=== PATIENT | female | born 2000 | race Hispanic/Latino ===

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

== ENCOUNTER 2020-04-18 21:28 | Emergency (ER) | payer SELFPAY ==
[2020-04-18 22:50] LABS: Absolute Lymphocytes (CBC) 2.8 K/uL (0.7-4.9); Basophils % 0.8 % (0-1.3); Hematocrit 42.3 % (36.0-45.0); Lymphocytes % 39.1 % (15.3-44.8); MPV 10.2 fL (7.6-11.3); RBC Red Blood Cell Count 4.57 M/uL (3.86-4.86)
[2020-04-18 22:59] LABS: ALT/SGPT 30 U/L (12-78); AST/SGOT 19 U/L (15-37); Albumin 4.1 g/dL (3.4-5.0); Alkaline Phosphatase 76 U/L (45-117); BUN Blood Urea Nitrogen 10 mg/dL (7-18); Bicarbonate 27 mmol/L (21-32); Bilirubin Direct < 0.1 mg/dL (0-0.2); Bilirubin Total 0.2 mg/dL (0.2-1.0); Glucose Level 84 mg/dL (74-106); Lipase 67 U/L (73-393); Potassium 3.8 mmol/L (3.5-5.1); Protein, Total 7.8 g/dL (6.4-8.2); Sodium Level 140 mmol/L (136-145)
[2020-04-18] MEDS ORDERED: ONDANSETRON 4 MG/2 ML VIAL ONE (23:01)
[2020-04-18] MEDS ORDERED: NA CHLORIDE 0.9% 1,000 ML ONE (23:02)
[2020-04-18] MEDS ORDERED: KETOROLAC 30 MG/ML INJ ONE (23:02)
[2020-04-19 00:08] LABS: Urine Bacteria >50 /HPF (<20); Urine Mucus 1+ /HPF (NONE SEEN); Urine RBC <5 /HPF (NONE SEEN)
[2020-04-19 00:48] LABS: Urine Blood NEGATIVE (NEG); Urine Glucose NEGATIVE (NEG); Urine Protein NEGATIVE (NEG); Urine Specific Gravity 1.025 (1.005-1.030); Urine pH 6.5 (5.0-7.0)
--- NOTE | 2020-04-19 02:12 | ER ---
Nurse's Notes [facility] Name: Lulu Downey Age: 19 yrs Sex: Female : 2000 Arrival Date: 04/18/2020 Time: 21:30 Bed 18 Private MD: Diagnosis: Pain localized to other parts of lower abdomen;Encounter for screening for infections with a predominantly sexual mode of transmission Presentation: 04/18 21:37 Chief complaint: Patient states: Lower abd pain for 4 days. Sharp pain to RLQ. + ll1 nausea, diarrhea resolved after the first two days. Coronavirus screen: Client denies travel out of the [place] in the last 14 days. At this time, the client does not indicate any symptoms associated with coronavirus-19. Ebola Screen: Patient denies travel to an Ebola-affected area in the 21 days before illness onset. Initial Sepsis Screen: Does the patient meet any 2 criteria? No. Patient's initial sepsis screen is negative. Does the patient have a suspected source of infection? Yes: Acute abdominal pain. Risk Assessment: Do you want to hurt yourself or someone else? Patient reports no desire to harm self or others. Onset of symptoms was April 15, 2020. 21:37 Method Of Arrival: Ambulatory ll1 21:37 Acuity: JUDITH 3 ll1 Historical: - Allergies: 21:39 No Known Allergies; ll1 - PMHx: 21:39 Anxiety; ll1 - PSHx: 21:39 Knee surgery; ll1 - Immunization history:: Flu vaccine is not up to date. - Social history:: Smoking status: Reported history of juuling and/or vaping. Patient denies any tobacco usage or history of. Screenin:45 Abuse screen: Denies threats or abuse. Nutritional screening: No deficits noted. jb4 Tuberculosis screening: No symptoms or risk factors identified. Fall Risk None identified. Assessment: 21:45 General: Appears in no apparent distress. comfortable, Behavior is calm, cooperative, jb4 appropriate for age. Pain: Complains of pain in right lower quadrant Pain radiates to left lower quadrant Pain currently is 9 out of 10 on a pain scale. Quality of pain is described as crampy. Neuro: Level of Consciousness is awake, alert, obeys commands, Oriented to person, place, time, situation. Cardiovascular: Patient's skin is warm and dry. Respiratory: Airway is patent Respiratory effort is even, unlabored, Respiratory pattern is regular, symmetrical. GI: Abdomen is flat, non-distended, Abd is soft X 4 quads Abd is non tender in right upper quadrant and left upper quadrant Abdomen is tender to palpation in right lower quadrant and left lower quadrant. : No signs and/or symptoms were reported regarding the genitourinary system. EENT: No signs and/or symptoms were reported regarding the EENT system. Derm: Skin is intact, Skin is pink, warm \T\ dry. Musculoskeletal: Circulation, motion, and sensation intact. Range of motion: intact in all extremities. 23:00 Reassessment: Patient appears in no apparent distress at this time. Patient and/or jb4 family updated on plan of care and expected duration. Pain level reassessed. Patient is alert, oriented x 3, equal unlabored respirations, skin warm/dry/pink. Ct notified pt finished oral contrast at 2230. 04/19 00:42 Reassessment: Patient appears in no apparent distress at this time. Patient and/or jb4 family updated on plan of care and expected duration. Pain level reassessed. Patient is alert, oriented x 3, equal unlabored respirations, skin warm/dry/pink. 01:45 Reassessment: Patient appears in no apparent distress at this time. Patient and/or jb4 family updated on plan of care and expected duration. Pain level reassessed. Patient is alert, oriented x 3, equal unlabored respirations, skin warm/dry/pink. 02:40 Reassessment: Patient appears in no apparent distress at this time. Patient and/or jb4 family updated on plan of care and expected duration. Pain level reassessed. Patient is alert, oriented x 3, equal unlabored respirations, skin warm/dry/pink. Vital Signs: 04/18 21:37 BP 125 / 102; Pulse 82; Resp 17; Temp 98.4; Pulse Ox 99% ; Weight 74.84 kg; Height 5 ll1 ft. 2 in. (157.48 cm); Pain 9/10; 22:45 BP 129 / 79; Pulse 57; Resp 16; Pulse Ox 98% on R/A; jb4 23:30 BP 107 / 66; Pulse 70; Resp 16; Pulse Ox 98% on R/A; jb4 04/19 00:30 BP 96 / 53; Pulse 81; Resp 18; Pulse Ox 97% on R/A; jb4 01:45 BP 101 / 56; Pulse 68; Resp 16; Pulse Ox 97% on R/A; jb4 02:30 BP 100 / 62; Pulse 80; Resp 16; Pulse Ox 98% on R/A; jb4 04/18 21:37 Body Mass Index 30.18 (74.84 kg, 157.48 cm) ll1 ED Course: 04/18 21:30 Patient arrived in ED. cl3 21:38 Triage completed. ll1 21:39 Arm band placed on Patient placed in an exam room, on a stretcher. ll1 21:40 Rodrick Marley PA is PHCP. cp 21:40 Rodrick Gordillo MD is Attending Physician. cp 21:45 Patient has correct armband on for positive identification. Bed in low position. Call jb4 light in reach. Side rails up X 1. Pulse ox on. NIBP on. 21:51 Kiran Richter, NAVIN is Primary Nurse. jb4 22:30 Initial lab(s) drawn, by me. Inserted saline lock: 20 gauge in right antecubital area, jb4 using aseptic technique. Blood collected. 23:24 Pelvis Complete In Process Unspecified. EDMS 04/19 00:25 CT Abd/Pelvis - PO and IV Contrast In Process Unspecified. EDMS 02:07 Assist provider with pelvic exam: Set up pelvic tray. Performed by Rodrick CASTANEDA bb Specimens sent to lab. Patient tolerated well. 02:09 Sergio Wright MD is Referral Physician. cp 02:40 IV discontinued, intact, bleeding controlled, No redness/swelling at site. Pressure jb4 dressing applied. Administered Medications: 04/18 22:58 Drug: Zofran (Ondansetron) 4 mg Route: IVP; Site: right antecubital; jb4 23:30 Follow up: Response: No adverse reaction jb4 23:00 Drug: TORadol - Ketorolac 15 mg Route: IVP; Site: right antecubital; jb4 23:30 Follow up: Response: Adverse reaction, Physician notified; Pain is decreased jb4 23:00 Drug: NS 0.9% 1000 ml Route: IV; Rate: 1 bolus; Site: right antecubital; jb4 23:45 Follow up: Response: No adverse reaction; IV Status: Completed infusion jb4 04/19 02:25 Drug: Rocephin 1 grams Route: IV; Rate: calculated rate; Site: right antecubital; jb4 02:25 Drug: Zithromax 1 grams Route: PO; jb4 Outcome: 02:11 Discharge ordered by MD. wu 02:40 Patient left the ED. jb4 02:40 Discharged to home ambulatory. jb4 02:40 Condition: stable 02:40 Discharge instructions given to patient, Instructed on discharge instructions, follow up and referral plans. medication usage, Demonstrated understanding of instructions, follow-up care, medications, Prescriptions given X 1. Signatures: Dispatcher [employer] Samira Miguel RN RN Rodrick Collier PA PA cp Bryson, James, RN RN jb4 Tito Cordero3 Genaro Cordero RN RN ll1
--- NOTE | 2020-04-19 02:12 | EDPHYS ---
Physician Documentation [facility] Name: Lulu Downey Age: 19 yrs Sex: Female : 2000 Arrival Date: 04/18/2020 Time: 21:30 Bed 18 Private MD: ED Physician Rodrick Gordillo HPI: 04/18 22:00 This 19 yrs old Female presents to ER via Ambulatory with complaints of Low cp Abdominal Pain. 22:00 The patient presents with abdominal pain in the lower abdomen. Onset: The cp symptoms/episode began/occurred 4 day(s) ago. The symptoms do not radiate. Associated signs and symptoms: Pertinent positives: low back pain, Pertinent negatives: anorexia, constipation, diarrhea, dysuria, fever, vaginal discharge, vomiting. The symptoms are described as waxing/waning. 04/19 01:00 Patient reports recent history of having unprotected sex with new partner. cp Historical: - Allergies: 04/18 21:39 No Known Allergies; ll1 - PMHx: 21:39 Anxiety; ll1 - PSHx: 21:39 Knee surgery; ll1 - Immunization history:: Flu vaccine is not up to date. - Social history:: Smoking status: Reported history of juuling and/or vaping. Patient denies any tobacco usage or history of. ROS: 22:05 Abdomen/GI: Positive for abdominal pain, nausea, Negative for vomiting, diarrhea, cp constipation, anorexia. 22:05 Eyes: Negative for injury, pain, redness, and discharge. cp 22:05 Constitutional: Negative for body aches, chills, fever, poor PO intake. 22:05 ENT: Negative for ear pain, sore throat, difficulty swallowing, difficulty handling secretions. 22:05 Cardiovascular: Negative for chest pain, edema, palpitations. 22:05 Respiratory: Negative for cough, shortness of breath, wheezing. 22:05 Back: Positive for pain at rest, pain with movement, of the low back area. 22:05 : Negative for urinary symptoms, flank pain, vaginal bleeding, vaginal discharge. 22:05 Neuro: Negative for altered mental status, headache, syncope, weakness. 22:05 All other systems are negative. Exam: 22:10 Constitutional: The patient appears in no acute distress, alert, awake, non-toxic, well cp developed, well nourished. 22:10 Head/Face: Normocephalic, atraumatic. cp 22:10 Eyes: Periorbital structures: appear normal, Conjunctiva: normal, no exudate, no injection, Sclera: no appreciated abnormality, Lids and lashes: appear normal, bilaterally. 22:10 ENT: External ear(s): are unremarkable, Nose: is normal, Posterior pharynx: Airway: no evidence of obstruction, patent. 22:10 Chest/axilla: Inspection: normal. 22:10 Cardiovascular: Rate: normal, Rhythm: regular. 22:10 Respiratory: the patient does not display signs of respiratory distress, Respirations: normal, no use of accessory muscles, no retractions, labored breathing, is not present. 22:10 Abdomen/GI: Inspection: abdomen appears normal, Bowel sounds: active, all quadrants, Palpation: soft, in all quadrants, mild abdominal tenderness, in the left lower quadrant, moderate abdominal tenderness, in the right lower quadrant, rebound tenderness, is not appreciated, voluntary guarding, is not appreciated, involuntary guarding, is not appreciated. 22:10 Back: pain, that is moderate, of the low back area, ROM is normal, CVA tenderness, is absent. 04/19 01:15 : Pelvic Exam: External exam: is normal, Speculum exam: no bleeding is noted, no cp cervicitis, os that is closed, bimanual exam reveals mild CMT and bilateral adnexal tenderness with no masses palpated, discharge, yellow, a female property management specialist was present for the exam, Sexual behavior: the patient is sexually active, method of control is none. Vital Signs: 04/18 21:37 BP 125 / 102; Pulse 82; Resp 17; Temp 98.4; Pulse Ox 99% ; Weight 74.84 kg; Height 5 ll1 ft. 2 in. (157.48 cm); Pain 9/10; 22:45 BP 129 / 79; Pulse 57; Resp 16; Pulse Ox 98% on R/A; jb4 23:30 BP 107 / 66; Pulse 70; Resp 16; Pulse Ox 98% on R/A; jb4 03 00:30 BP 96 / 53; Pulse 81; Resp 18; Pulse Ox 97% on R/A; jb4 01:45 BP 101 / 56; Pulse 68; Resp 16; Pulse Ox 97% on R/A; jb4 02:30 BP 100 / 62; Pulse 80; Resp 16; Pulse Ox 98% on R/A; jb4 04/18 21:37 Body Mass Index 30.18 (74.84 kg, 157.48 cm) ll1 MDM: 04/18 21:42 Patient medically screened. cp 22:00 Differential diagnosis: appendicitis, Ectopic , Endometriosis, Ovarian cp Torsion, Pelvic Inflammatory Disease, Pyelonephritis, Tubal Ovarian Abcess, Ureterolithiasis, urinary tract infection. 04/19 02:10 Data reviewed: vital signs, nurses notes, lab test result(s), radiologic studies, CT cp scan, ultrasound. 02:10 Counseling: I had a detailed discussion with the patient and/or guardian regarding: the cp historical points, exam findings, and any diagnostic results supporting the discharge/admit diagnosis, lab results, radiology results, the need for outpatient follow up, an OB/Gyne specialist, to return to the emergency department if symptoms worsen or persist or if there are any questions or concerns that arise at home. Response to treatment: the patient's symptoms have markedly improved after treatment, VSS. Pain improved with meds. Patient appears non-toxic. Will treat for PID and discharge to home for continued monitoring. 04/18 21:52 Order name: Basic Metabolic Panel cp 04/18 21:52 Order name: CBC with Diff; Complete Time: 23:06 cp 04/18 21:52 Order name: Hepatic Function; Complete Time: 23:06 cp 04/18 21:52 Order name: Lipase; Complete Time: 23:06 cp 04/18 21:52 Order name: Urine Microscopic Only; Complete Time: 01:23 cp 04/19 01:23 Interpretation: Normal except: UWBC 5-10; UBACT >50; SQEPI 5-10. cp 04/18 21:52 Order name: Basic Metabolic Panel; Complete Time: 23:06 EDMS 04/18 22:42 Order name: Urine --Ancillary (enter results); Complete Time: 01:23 tt3 04/18 22:42 Order name: Urine Dipstick--Ancillary (enter results); Complete Time: 01:23 tt3 04/19 00:12 Order name: Urine Culture EDMS 04/19 01:28 Order name: GC (GONORR/CHLAMYDIA) Probe cp 04/19 01:28 Order name: Wet Prep cp 04/19 01:29 Order name: GC (Teddy/Chl) Probe CX/URE EDMS 04/19 01:29 Order name: Wet Prep EDMS 04/18 21:40 Order name: Urine Dipstick-Ancillary (obtain specimen); Complete Time: 22:55 cp 04/18 21:40 Order name: Urine Test (obtain specimen); Complete Time: 22:55 cp 04/18 21:52 Order name: IV Saline Lock; Complete Time: 22:55 cp 04/18 21:52 Order name: Labs collected and sent; Complete Time: 22:55 cp 04/18 21:52 Order name: CT Abd/Pelvis - PO and IV Contrast cp 04/18 23:23 Order name: Pelvis Complete EDMS 04/19 01:28 Order name: Pelvic Exam Setup; Complete Time: 02:04 cp Administered Medications: 04/18 22:58 Drug: Zofran (Ondansetron) 4 mg Route: IVP; Site: right antecubital; jb4 23:30 Follow up: Response: No adverse reaction [facility] 23:00 Drug: TORadol - Ketorolac 15 mg Route: IVP; Site: right antecubital; jb4 23:30 Follow up: Response: Adverse reaction, Physician notified; Pain is decreased jb4 23:00 Drug: NS 0.9% 1000 ml Route: IV; Rate: 1 bolus; Site: right antecubital; jb4 23:45 Follow up: Response: No adverse reaction; IV Status: Completed infusion [facility] 04/19 02:25 Drug: Rocephin 1 grams Route: IV; Rate: calculated rate; Site: right antecubital; [facility] 02:25 Drug: Zithromax 1 grams Route: PO; 4 Disposition: 05:53 Co-signature as Attending Physician, Rodrick Gordillo MD I agree with the assessment and ashlyn plan of care. Disposition: 04/19/20 02:11 Discharged to Home. Impression: Pain localized to other parts of lower abdomen, Encounter for screening for infections with a predominantly sexual mode of transmission. - Condition is Stable. - Discharge Instructions: Abdominal Pain, Adult, Sexually Transmitted Disease, Health Maintenance, Female. - Prescriptions for Ibuprofen 800 mg Oral Tablet - take 1 tablet by ORAL route every 8 hours As needed take with food; 30 tablet. Doxycycline Hyclate 100 mg Oral Tablet - take 1 tablet by ORAL route every 12 hours; 20 tablet. Metronidazole 500 mg Oral Tablet - take 1 tablet by ORAL route every 8 hours; 30 tablet. - Medication Reconciliation Form, Thank You Letter, Antibiotic Education, Prescription Opioid Use form. - Follow up: Sergio Wright MD; When: 2 - 3 days; Reason: Worsening of condition. - Problem is new. - Symptoms have improved. Signatures: Dispatcher [employer] [facility] Rodrick Gordillo MD MD cha Page, Corey, PA PA cp Kiran Richter RN RN jb4 Genaro Cordero RN RN ll1 Corrections: (The following items were deleted from the chart) 04/18 22:08 22:06 This 19 yrs old Female presents to ER via Ambulatory with complaints of cp Low Abdominal Pain. cp 23:24 21:52 Transvaginal Study (Probe)+US.RAD.BRZ ordered. [facility] 04/19 02:40 02:11 04/19/2020 02:11 Discharged to Home. Impression: Pain localized to other parts of jb4 lower abdomen; Encounter for screening for infections with a predominantly sexual mode of transmission. Condition is Stable. Forms are Medication Reconciliation Form, Thank You Letter, Antibiotic Education, Prescription Opioid Use. Follow up: Sergio Wright; When: 2 - 3 days; Reason: Worsening of condition. Problem is new. Symptoms have improved. cp 04/20 01:15 01:14 Patient reports recent history of having unprotected sex with new partner. cp cp
[2020-04-19] MEDS ORDERED: CEFTRIAXONE/SWI 1gm 1 GM/10 ML SYR ONE (02:35)
[2020-04-19] MEDS ORDERED: AZITHROMYCIN 250 MG TAB ONE (02:35)
[2020-04-19 02:47] VITALS: TEMP 98.4
[2020-04-19 02:50] VITALS: BP 96/53; O2SAT 97
--- NOTE | 2020-04-19 08:21 | RAD REPORT ---
EXAM DESCRIPTION: US - Pelvis Complete - 04/18/2020 11:24 pm CLINICAL HISTORY: lower abdomen pain Preliminary findings provided at the time of the study. COMPARISON: Abdomen Pelvis W Contrast dated 04/19/2020 TECHNIQUE: Transabdominal pelvic sonography was performed. FINDINGS: Endometrial stripe is approximately 4 mm with homogeneous echogenicity. No mass, polyp or hemorrhagic component seen. No discrete myometrial mass. Uterine size is normal. Both ovaries are varun ntified and show blood flow within the ovarian stroma on Doppler assessment. No dominant solid or cys tic ovarian or adnexal finding. No blood or fluid in the cul de sac. IMPRESSION: Negative pelvic ultrasound.
--- NOTE | 2020-04-19 11:37 | RAD REPORT ---
EXAM DESCRIPTION: CT - Abdomen Pelvis W Contrast - 04/19/2020 6:57 am CLINICAL HISTORY: Lower abdomen pain COMPARISON: None Available. TECHNIQUE: CT of the abdomen and pelvis performed following IV administration of iodinated contras t. This exam was performed according to our departmental dose-optimization program, which includes au tomated exposure control, adjustment of the mA and/or kV according to patient size and/or use of iter ative reconstruction technique. FINDINGS: Lung Bases: The visualized lung bases are clear. Bones: No destructive bone lesions identified. Abdomen: Liver: The liver has normal size and density. No intrahepatic biliary dilatation. Gallbladder: No calcified gallstones. Spleen, Pancreas, and Adrenal Glands: The spleen, pancreas, and adrenal glands are unremarkable. Kidneys: No hydronephrosis or obstructing calculus. Vasculature: The aorta and IVC have normal caliber and position. The portal vein is patent. The pro ximal visceral and renal arteries are patent. Stomach: The stomach and duodenum have normal course. Other: No free intraperitoneal air. Mildly prominent probably right mesenteric lymph nodes. Pelvis: Bladder: Urinary bladder is unremarkable. Bowel: No dilated loops of large or small bowel. Appendix: Normal appendix. Pelvis: Uterus is not enlarged. IMPRESSION: 1. Findings suggestive of mesenteric adenitis. 2. Normal appendix. Electronically signed by: Gennaro Pendleton 04/19/2020 12:50 AM [employer] Due to temporary technical issues with the PACS/Fluency reporting system, reports are being signed by the in house radiologist without review as a courtesy to ensure prompt reporting. The interpreting r adiologist is fully responsible for the content of the report.
[2020-04-22 13:58] LABS: C.trachomatis RNA,TMA Detected (Not Detected)
== END 2020-04-19 02:40 | disposition home or self-care (01) ==
LOC: ER 21:28
DX: Z11.3 Encounter for screening for infections with a predominantly sexual mode of transmission (principal); Z87.891 Personal history of nicotine dependence
CPT/HCPCS: 36415; 74177; 76856; 80048; 80076; 81003; 81015; 81025; 83690; 85025; 87086; 87088; 87210; 87490; 87590; 96361; 96374; 96375; 99284; J0696; J2405; J7030; Q9967

== ENCOUNTER 2024-04-04 08:54 | Emergency (ER) | payer SELFPAY ==
--- OUTSIDE RECORDS SUMMARY | 2024-04-04 08:57 | XMS REPORT | Continuity of Care Document ---
Author Name Unknown Address [address] [facility] [facility] [address] [place] [address] [facility] thconnect Address [address] 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 Name Role Phone Lab, Adc Fam Pob I Attending Clinician Unavailab le Unknown, Attending Attending Clinician Unavailab le UNKNOWN, ATTENDING Attending Clinician Unavailab le Payers Payer Name Policy Type Policy Number Effective Date Expirati on Date Source Allergies, Adverse Reactions, Alerts Allergy Name Allergy Type Status Severity Reaction(s) Onset Date Inactive Date Treating Clinician Comments Source NO KNOWN ALLERGIE S Drug Class Active General acute hospital Social History Social Habit Start Date Stop Date Quantity Comments Source Exposure to SARS-CoV-2 (event) Not sure [facility] Sex Assigned At 2000 00:00:00 2000 00:00:00 [facility] Smoking Status Start Date Stop Date Source Unknown if ever smoked [facility] Encounters Start Date/Time End Date/Time Encounter Type Admission Type Attending Clinicians Care Facility Care Department Encounter ID Source 2020-09-29 14:55:54 2020-09-29 15:15:54 Laboratory Only Lab, Adc Fam Pob I Unknown, Attending [facility] Denis [address] [id number] General acute hospital 2020-09-29 15:00:00 2020-09-29 15:00:00 Outpatient R UNKNOWN, ATTENDING [facility] [id number] General acute hospital
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
[2024-04-04] MEDS ORDERED: IBUPROFEN 200 MG TAB PO ONE (10:25)
--- NOTE | 2024-04-04 10:55 | RAD REPORT ---
Exam:Knee Right 3 View HISTORY: Right knee pain FINDINGS: No fracture or dislocation seen Prior ACL surgery
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
[2024-04-04 12:34] VITALS: BP 136/94; TEMP 97.6; O2SAT 100
== END 2024-04-04 11:53 | disposition home or self-care (01) ==
LOC: ER 08:54
DX: M25.461 Effusion, right knee (principal); S06.0X0A Concussion without loss of consciousness, initial encounter
CPT/HCPCS: 70450

== ENCOUNTER 2024-04-06 11:21 | Emergency (ER) | payer SELFPAY ==
--- OUTSIDE RECORDS SUMMARY | 2024-04-06 11:23 | XMS REPORT | Continuity of Care Document ---
Author Name Unknown Address [address] [facility] [address] [place] [address] [facility] thconnect Address [address] [facility] [place] [address] Care Team Providers Care Precision Assembler Bench Name Role Phone Lab, Adc Fam Pob I Attending Clinician Unavailab le Unknown, Attending Attending Clinician Unavailab le UNKNOWN, ATTENDING Attending Clinician Unavailab le Payers Payer Name Policy Type Policy Number Effective Date Expirati on Date Source Allergies, Adverse Reactions, Alerts Allergy Name Allergy Type Status Severity Reaction(s) Onset Date Inactive Date Treating Clinician Comments Source NO KNOWN ALLERGIE S Drug Class Active [facility] Social History Social Habit Start Date Stop Date Quantity Comments Source Exposure to SARS-CoV-2 (event) Not sure [facility] Sex Assigned At 2000 00:00:00 2000 00:00:00 [facility] Smoking Status Start Date Stop Date Source Unknown if ever smoked [facility] Encounters Start Date/Time End Date/Time Encounter Type Admission Type Attending Clinicians Care Facility Care Department Encounter ID Source 2020-09-29 14:55:54 2020-09-29 15:15:54 Laboratory Only Lab, Adc Fam Pob I Unknown, Attending [facility] [address] [id number] [facility] 2020-09-29 15:00:00 2020-09-29 15:00:00 Outpatient R UNKNOWN, ATTENDING [facility] [id number] [facility]
[2024-04-06] MEDS ORDERED: KETOROLAC 30 MG/ML INJ ONE (11:55)
[2024-04-06] MEDS ORDERED: ONDANSETRON 4 MG (ODT) TAB ONE (11:55)
[2024-04-06] MEDS ORDERED: HYDROMORPHONE HCL 1 MG/ML INJ ONE (11:55)
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
--- NOTE | 2024-04-06 12:03 | ER ---
Nurse's Notes [facility] Name: Lulu Downey Age: 23 yrs Sex: Female : 2000 Arrival Date: 04/06/2024 Time: 11:21 Bed 14 Private MD: Diagnosis: Right knee pain secondary to trauma Presentation: 04/06 11:28 Chief complaint: Patient states: R knee still hurts since her visit here on Wednesday. ll1 Coronavirus screen: Client denies travel out of the [place] in the last 14 days. At this time, the client does not indicate any symptoms associated with coronavirus-19. Ebola Screen: Patient denies travel to an Ebola-affected area in the 21 days before illness onset. Initial Sepsis Screen: Does the patient meet any 2 criteria? No. Patient's initial sepsis screen is negative. Does the patient have a suspected source of infection? No. Patient's initial sepsis screen is negative. Risk Assessment: Do you want to hurt yourself or someone else? Patient reports no desire to harm self or others. Onset of symptoms was April 02, 2024. 11:28 Method Of Arrival: Ambulatory ll1 11:28 Acuity: JUDITH 4 ll1 Historical: - Allergies: 11:29 No Known Allergies; ll1 - PMHx: 11:29 Anxiety; ll1 - Immunization history:: Adult Immunizations up to date. - Infectious Disease History:: Denies. - Social history:: Smoking status: Patient denies any tobacco usage or history of. Screenin:08 [facility] ED Fall Risk Assessment (Adult) History of falling in the last 3 months, db including since admission Yes- single mechanical fall (1 pt) Confusion or Disorientation No (0 pts) Intoxicated or Sedated No (0 pts) Impaired Gait Yes (1 pt) Mobility Assist Device Used Yes (1 pt) Altered Elimination No (0 pt) Score/Fall Risk Level 3 or more points = High Risk Oriented to surroundings, Maintained a safe environment, Hourly rounding (assess needs \T\ fall precautionary measures) done. Abuse screen: Denies threats or abuse. Denies injuries from another. Nutritional screening: No deficits noted. Tuberculosis screening: No symptoms or risk factors identified. Assessment: 12:08 Reassessment: Patient appears in no apparent distress at this time. Patient and/or db family updated on plan of care and expected duration. Pain level reassessed. Patient is alert, oriented x 3, equal unlabored respirations, skin warm/dry/pink. Reassessment:. General: Appears in no apparent distress. comfortable, Behavior is calm, cooperative. Pain: Complains of pain in right knee. Neuro: Level of Consciousness is awake, alert, obeys commands, Oriented to person, place, time, situation. Respiratory: Airway is patent Respiratory effort is even, unlabored, Respiratory pattern is regular, symmetrical. Vital Signs: 11:30 BP 140 / 97; Pulse 75; Resp 16; Temp 97.8; Pulse Ox 98% ; db 12:00 BP 132 / 88; Pulse 73; Resp 16; Pulse Ox 98% on R/A; db ED Course: 11:23 Patient arrived in ED. al6 11:23 Meseret Araujo MD is Attending Physician. sp3 11:29 Triage completed. ll1 11:29 Arm band placed on. ll1 11:37 Dea Cross RN is Primary Nurse. db 12:00 Morteza Dempsey MD is Referral Physician. sp3 12:08 Patient has correct armband on for positive identification. Call light in reach. Side db rails up X 1. Pillow given. 12:08 No provider procedures requiring assistance completed. Patient did not have IV access db during this emergency room visit. 12:20 Provided Education on: DISCHARGE. db Administered Medications: 12:00 Drug: HYDROmorphone IM 1 mg IM once Route: IM; Site: Ventrogluteal RIGHT; db 12:22 Follow up: Response: No adverse reaction; Pain is decreased db 12:00 Drug: Ondansetron Oral Disintegrating Tablet Oral Disintegrating Tablet 4 mg PO once db Route: PO; 12:22 Follow up: Response: No adverse reaction db 12:00 Drug: Ketorolac IM 30 mg IM once Route: IM; Site: right ventrogluteal; db 12:22 Follow up: Response: No adverse reaction db Medication: 12:20 VIS not applicable for this client. db Outcome: 12:02 Discharge ordered by . sp3 12:20 Discharged to home ambulatory, with crutches, db 12:20 Condition: stable 12:20 Discharge instructions given to patient, Instructed on discharge instructions, follow up and referral plans. 12:22 Patient left the ED. db Signatures: Genaro Cordero RN RN ll1 Meseret Araujo MD MD sp3 Dea Cross RN RN db Angela [email or web address] Corrections: (The following items were deleted from the chart) 11:31 11:30 BP 140 / 97; Pulse 75bpm; Resp 16bpm; ll1 db 12:07 12:00 HYDROmorphone IM 1 mg IM in right vastus lateralis db db
[2024-04-07 14:59] VITALS: TEMP 97.8; O2SAT 98
[2024-04-07 15:00] VITALS: BP 132/88
== END 2024-04-06 12:22 | disposition home or self-care (01) ==
LOC: ER 11:21
DX: M25.561 Pain in right knee (principal)
CPT/HCPCS: 96372; 99284; J1171; Q0162